=== PATIENT | female | born 1970 | race Caucasian/White ===

== ENCOUNTER → 2016-12-08 | Outpatient (CLI) | payer BC ==
[2016-12-08 17:11] LABS: Basophils % (A) 0 %; CH 32.5; CHCM 34.4; Eosinophils # (A) 0.1 k/uL (0-0.7); Eosinophils % (A) 2 %; HCT 41.6 % (34.0-46.0); HDW 2.39; HGB 14.2 gm/dL (11.4-16.0); Luc # (Auto) 0.18; Luc % (Auto) 2; Lymphocytes # (A) 2.9 k/uL (1.0-4.8); Lymphocytes % (A) 37 %; MCH 32.4 pg (25.0-35.0); MCHC 34.1 g/dL (31.0-37.0); MCV 94.8 fL (80.0-100.0); Mean Platelet Volume 7.8; Monocytes # (A) 0.5 k/uL (0-1.0); Monocytes % (A) 6 %; Neutrophils # (A) 4.1 k/uL (1.3-7.7); Neutrophils % (A) 52 %; RBC 4.39 m/uL (3.80-5.40); RDW 12.2 % (11.5-15.5); WBC 7.9 k/uL (3.8-10.6); WBC (Perox) 8.27
[2016-12-08 17:15] LABS: Appearance,Urine Clear (Clear); Bilirubin,Urine Negative (Negative); Glucose,Urine (UA) Negative (Negative); Ketones,Urine Negative (Negative); Leukocyte Esterase,Urine Negative (Negative); Nitrite,Urine Negative (Negative); PH, Urine 6.5 (5.0-8.0); Protein,Urine Negative (Negative); Specific Gravity,Urine 1.005 (1.001-1.035); UA Billing (MACRO vs. MICRO) CHEM; Urobilinogen,Urine <2.0 mg/dL (<2.0)
--- NOTE | 2016-12-08 17:19 | XR ---
EXAMINATION TYPE: XR chest 2V DATE OF EXAM: 12/08/2016 5:02 PM COMPARISON: NONE HISTORY: Smoker. Chest pain. TECHNIQUE: Frontal and lateral views of the chest are obtained. FINDINGS: Heart and mediastinum are normal. Lungs are clear. Diaphragm is normal. There are no hilar masses. Bony thorax appears normal. IMPRESSION: Normal chest
[2016-12-08 17:21] LABS: ALT 31 U/L (9-52); AST 19 U/L (14-36); Alkaline Phosphatase 62 U/L (38-126); Anion Gap 12 mmol/L; Blood Urea Nitrogen 11 mg/dL (7-17); C Reactive Protein <5.0 mg/L (<10.0); Calcium 9.7 mg/dL (8.4-10.2); Carbon Dioxide 21 mmol/L (22-30); Chloride 107 mmol/L (98-107); Glucose 77 mg/dL (74-99); Magnesium 2.1 mg/dL (1.6-2.3); Non-African American GFR(MDRD) >60 (>60 ml/min/1.73 sqM); Potassium 3.8 mmol/L (3.5-5.1); Sodium 140 mmol/L (137-145); Total Bilirubin 0.5 mg/dL (0.2-1.3); Total Protein 7.7 g/dL (6.3-8.2); Uric Acid 4.1 mg/dL (3.7-7.4)
[2016-12-08 17:22] LABS: Rheumatoid Factor, Qnt <9 IU/mL (<12)
[2016-12-08 18:08] LABS: Vitamin B12 798 pg/mL (239-931)
[2016-12-08 19:31] LABS: Erythrocyte Sedimentation Rate 4 mm/hr (0-20)
--- NOTE | 2016-12-09 13:04 | MM ---
Reason for exam: screening (asymptomatic). Last mammogram was performed 1 year and 7 months ago. History: Patient has history of endometrial cancer at age 24. Physical Findings: A clinical breast exam by your physician is recommended on an annual basis and results should be correlated with mammographic findings. MG Screening Mammo w CAD Bilateral CC and MLO view(s) were taken. Prior study comparison: May 23, 2015, bilateral foundation screening mammo. April 06, 2012, mammogram, performed at [facility]. The breast tissue is heterogeneously dense. This may lower the sensitivity of mammography. No significant changes when compared with prior studies. ASSESSMENT: Benign, BI-RAD 2 RECOMMENDATION: Routine screening mammogram of both breasts in 1 year.
== END | disposition home or self-care (01) ==
LOC: RADMAMWWP 16:31
PROVIDERS: ATTEND Internal Medicine
DX: Z12.31 Encounter for screening mammogram for malignant neoplasm of breast (principal); Z00.00 Encounter for general adult medical examination without abnormal findings; N39.0 Urinary tract infection, site not specified; I10 Essential (primary) hypertension; R35.0 Frequency of micturition; M06.4 Inflammatory polyarthropathy; Z72.0 Tobacco use
CPT/HCPCS: 80053; 85652; 82607; 83735; 84550; 85025; 86140; 86431; 81003; 82306; 87086; 71020; 36415; G0202

== ENCOUNTER → 2017-04-21 | Outpatient (CLI) | payer BC ==
--- NOTE | 2017-04-21 19:13 | CT ---
EXAMINATION TYPE: CT abdomen pelvis w con DATE OF EXAM: 04/21/2017 COMPARISON: NONE HISTORY: RIGHT SIDE FLANK PAIN AND DIFFICULTY URINATING. CT DLP: 534.5 mGycm Automated exposure control for dose reduction was used. TECHNIQUE: Helical acquisition of images was performed from the lung bases through the pelvis. CONTRAST: Performed with Oral Contrast and with IV Contrast, patient injected with 100 mL of Omnipaque 300. FINDINGS: Lung bases are clear. There is no pleural effusion. Heart size is normal. Liver spleen pancreas gallbladder appear normal. Bile ducts are not dilated. There is no adrenal mass. Kidneys show satisfactory contrast opacification. There is no hydronephrosi s. There is probably a 1 cm cortical cyst on the anterior left kidney. There is no retroperitoneal ad enopathy. There is no ascites. Appendix appears normal. I see no intestinal wall thickening. There ar e no dilated loops. Uterus is tilted slightly to the right side. Bladder distends smoothly. Lumbar sp ine is intact. IMPRESSION: NEGATIVE CT SCAN OF THE ABDOMEN AND PELVIS. THERE IS A SMALL LEFT RENAL CORTICAL CYST.
== END | disposition home or self-care (01) ==
LOC: RADCTMAIN 17:01
PROVIDERS: ATTEND Internal Medicine
DX: N28.1 Cyst of kidney, acquired (principal); R10.9 Unspecified abdominal pain
CPT/HCPCS: 74177; Q9967

== ENCOUNTER → 2018-09-20 | Outpatient (CLI) | payer BC ==
[2018-09-20 08:31] VITALS: BP 121/82; PULSE 94; RESP 18; TEMP 97.4; BMI 29.4
--- NOTE | 2018-09-20 10:08 | P.HPOB ---
History of Present Illness H&P Date: 09/20/18 Chief Complaint: The patient is here for her routine gynecologic exam and mammogram. This is a 48-year-old with an LMP of 08/11/2018. Patient states are menstrual periods were regular every 25 days up until about 2017. She had a stretch of 3 months in 2017 when she did not have a menstrual period. Since then her menstrual periods have been more unpredictable about every 3 to 6 weeks. She has had bleeding every day since her LMP except for a 48 hour stretch when she did not bleed. The bleeding became fairly heavy from 08/31/2018 -09/08/18. Since then the bleeding has been light and is now spotting. She did have hot flashes last year, but now she denies hot flashes. She is status post tubal sterilization. She has also been dealing with left flank pain and a kidney stone this month. She denies taking any pain medication other than regular Tylenol. She was given a prescription for tramadol for the kidney stone pain. She states she did not take any of the medication prescribed. Review of Systems She is getting about 18 pounds over the last 3 years. She denies respiratory cardiac problems. G.I.: she has had a long history of chronic constipation. : she has had issues with left flank pain and was recently diagnosed with a kidney stone. Past Medical History Past Medical History: No Reported History Additional Past Medical History / Comment(s): kidney stones. PAST HEAD OF MOBILE HISTORY : She has no history of STDs. She had a LEEP procedure of the cervix in her 20s for cervical dysplasia. History of Any Multi-Drug Resistant Organisms: None Reported Past Surgical History: Adenoidectomy, Breast Surgery (Augmentation with saline implants 2017), Tonsillectomy, Tubal Ligation Additional Past Surgical History / Comment(s): D&C, VTP, breast augmentation. LEEP of cervix. Upper endoscopy and colonoscopy 2010. Past Psychological History: Anxiety Smoking Status: Current every day smoker (Half pack per day) Past Alcohol Use History: Occasional (0-2 glasses of wine per day) Past Drug Use History: Marijuana Additional History: She is and has been with her partner since 2015 they lived together. 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 - Past Family History Mother Additional Family Medical History / Comment(s): Diverticulosis. Father Family Medical History: Coronary Artery Disease (CAD), Diabetes Mellitus Additional Family Medical History / Comment(s): Paternal grandfather had diabetes. Medications and Allergies Home Medications Medication Instructions Recorded Confirmed Type No Known Home Medications 09/20/18 09/20/18 History Allergies Allergy/AdvReac Type Severity Reaction Status Date / Time codeine AdvReac Severe throat Unverified 09/20/18 08:23 closure Sulfa (Sulfonamide AdvReac Severe Rash/Hives Unverified 09/20/18 08:23 Antibiotics) Exam Vital Signs Temp Pulse Resp BP Pulse Ox 09/20/18 08:26 97.4 F L 94 18 121/82 99 Intake and Output 09/19/18 09/20/18 09/20/18 22:59 06:59 14:59 Other: Weight 75.296 kg Height 5'3", weight 166 pounds, BMI 29.4. This is a well-developed well-nourished white female who is alert and oriented times 3 in no acute distress. HEENT: Within normal limits. NECK: Supple without mass or thyromegaly. CHEST AND LUNGS: Clear to auscultation. HEART: Regular rate and rhythm. BREASTS: Are without mass or discharge. Breasts are consistent with bilateral saline implants. AXILLARY EXAM: Negative for adenopathy. BACK: Negative for CVA tenderness. ABDOMEN: Soft, nontender, without palpable masses. PELVIC EXAM: Normal external genitalia. Cervix and vagina appear normal. There is no unusual discharge. There was no blood in the vagina upon inspection. There is no evidence of prolapse. The uterus is midposition, nongravid size and nontender. There are no palpable adnexal masses or tenderness. RECTAL EXAM: negative for mass or tenderness and is negative for occult blood. EXTREMITIES: Nontender. We discussed the endometrial biopsy procedure which I have recommended because of her dysfunctional uterine bleeding. We discussed possible risks and complications. All questions were answered. The patient has requested to have the procedure done today. Endometrial biopsy was performed without complications. Please see the procedure note for additional details. IMPRESSION: 1. 48 year old female with one to 2 years of menstrual irregularity every 3 to 6 weeks. 2. Dysfunctional uterine bleeding which started on 08/11/2018. 3. Previous tubal sterilization. 4. Normal gynecologic exam. PLAN: 1. Pap smear was performed. 2. Self breast awareness was discussed with the patient. 3. Mammogram will be done today. 4. The patient will keep a menstrual calendar. 5. Await endometrial biopsy pathology results (see procedure note). If benign , consider cyclic progestin therapy. Since the bleeding is minimal today, we can also consider conservative management and see what kind of bleeding occurs in the next few months. 6. The patient will also return in one year and PRN.
--- NOTE | 2018-09-20 10:16 | P.PCN ---
Date of Procedure: 09/20/18 Preoperative Diagnosis: Dysfunctional uterine bleeding Postoperative Diagnosis: Dysfunctional uterine bleeding Procedure(s) Performed: Endometrial biopsy Anesthesia: none Surgeon: Eleuterio Pineda Estimated Blood Loss (ml): 1 Pathology: other (Endometrial tissue) Condition: stable Disposition: same day Indications for Procedure: This was a 48-year-old with an LMP of 08/11/2018. The patient has had variable vaginal bleeding most days since her LMP for approximately 5 weeks. See the H&P for additional details. Operative Findings: The uteruses gravid size. The uterus sounded to 9 cm. Moderate amount of tissue was obtained. Description of Procedure: The endometrial biopsy procedure was described to the patient. All of her questions were answered. The patient was placed in the lithotomy position. Bimanual examination was performed. The uterus is mid-positioned and is nongravid size. The speculum was inserted and the cervix and vagina were prepped with betadine solution. In Allys Clamp is used to grasp the anterior lip of the cervix. The 3mm endometrial biopsy curette was placed to the fundus without difficulty. The uterus sounded to 9 cm. A [id number] rotating motion was used and a moderate amount of tissue was obtained and sent for pathological examination. The patient tolerated the procedure well. There were no complications. Post procedure instructions were given to the patient.
--- NOTE | 2018-09-22 09:14 | MM ---
Reason for exam: screening (asymptomatic). Last mammogram was performed 1 year and 9 months ago. History: Patient has history of endometrial cancer at age 24. Implants in both breasts, 2018. Physical Findings: A clinical breast exam by your physician is recommended on an annual basis and results should be correlated with mammographic findings. MG 3D Screen Mammo Imp/Cad Bilateral CC, MLO, and ID view(s) were taken. Prior study comparison: December 08, 2016, bilateral MG screening mammo w CAD. May 23, 2015, bilateral MG foundation screening mammo. The breast tissue is heterogeneously dense. This may lower the sensitivity of mammography. Bilateral retropectoral silicone implants are new. No significant changes when compared with prior studies. ASSESSMENT: Negative, BI-RAD 1 RECOMMENDATION: Routine screening mammogram of both breasts in 1 year.
== END | disposition home or self-care (01) ==
LOC: WWCWWP 08:10
PROVIDERS: ATTEND Obstetrics & Gynecology
DX: Z12.31 Encounter for screening mammogram for malignant neoplasm of breast (principal); N85.01 Benign endometrial hyperplasia
CPT/HCPCS: 77063; 77067; 88305

== ENCOUNTER → 2018-09-27 | Outpatient (CLI) | payer BC ==
--- NOTE | 2018-09-27 11:13 | XR ---
EXAMINATION TYPE: XR abdomen 1V DATE OF EXAM: 09/27/2018 COMPARISON: NONE HISTORY: Pain TECHNIQUE: Single supine KUB image of the abdomen is obtained FINDINGS: Small bowel demonstrates no evidence for dilatation or air fluid levels. Gas and fecal material is seen in non-distended colon. No convincing evidence for pneumoperitoneum. No unusual calcifications. The lung bases are clear. The osseous structures are intact. IMPRESSION: 1. Overall nonobstructive bowel gas pattern.
== END | disposition home or self-care (01) ==
LOC: RADXRMAIN 10:12
PROVIDERS: ATTEND Urology
DX: N20.0 Calculus of kidney (principal)
CPT/HCPCS: 74018

== ENCOUNTER 2019-01-27 00:40 | Emergency (ER) | payer BC, OTHER ==
--- NOTE | 2019-01-27 01:22 | XR ---
EXAM: XR Left Foot Complete, 3 or More Views XR Right Foot Complete, 3 or More Views CLINICAL HISTORY: ITS.REASON XR Reason: Pain TECHNIQUE: Frontal, lateral and oblique views of the bilateral feet. COMPARISON: None. FINDINGS: Bones/joints: Unremarkable. No acute fracture. No dislocation. Soft tissues: Unremarkable. No radiopaque foreign body. IMPRESSION: No acute osseous abnormality.
--- NOTE | 2019-01-27 01:25 | XR ---
EXAM: XR Left Tibia and Fibula, 2 Views XR Right Tibia and Fibula, 2 Views CLINICAL HISTORY: ITS.REASON XR Reason: Pain TECHNIQUE: Frontal and lateral views of the bilateral tibia and fibulas. COMPARISON: None. FINDINGS: Bones/joints: Unremarkable. No acute fracture. No dislocation. Soft tissues: Unremarkable. No radiopaque foreign body. IMPRESSION: No acute osseous abnormality.
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
[2019-01-27] MEDS ORDERED: DIAZEPAM 5 MG TAB PO STA (02:42)
[2019-01-27 03:48] VITALS: BP 128/93; PULSE 80; RESP 17; TEMP 98
== END 2019-01-27 02:55 | disposition home or self-care (01) ==
LOC: EC 00:40
DX: M79.661 Pain in right lower leg (principal); M79.662 Pain in left lower leg; F17.200 Nicotine dependence, unspecified, uncomplicated; Z88.5 Allergy status to narcotic agent; Z88.2 Allergy status to sulfonamides; V89.2XXA Person injured in unspecified motor-vehicle accident, traffic, initial encounter; Y92.89 Other specified places as the place of occurrence of the external cause
CPT/HCPCS: 99284

== ENCOUNTER → 2019-02-06 | Outpatient (CLI) | payer BC, OTHER ==
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
== END | disposition home or self-care (01) ==
LOC: RADXRMAIN 09:15
PROVIDERS: ATTEND Internal Medicine
DX: R07.9 Chest pain, unspecified (principal); M25.552 Pain in left hip; M25.551 Pain in right hip; M54.2 Cervicalgia; M54.5 Low back pain; R10.2 Pelvic and perineal pain
CPT/HCPCS: 71046; 72050; 72110; 73521

== ENCOUNTER → 2019-05-22 | Outpatient (CLI) | payer BC ==
--- NOTE | 2019-05-23 07:49 | XR ---
EXAMINATION TYPE: XR KUB DATE OF EXAM: 05/22/2019 COMPARISON: NONE HISTORY: Pain TECHNIQUE: Single supine KUB image of the abdomen is obtained FINDINGS: Small bowel demonstrates no evidence for dilatation or air fluid levels. Gas and fecal material is seen in non-distended colon. No convincing evidence for pneumoperitoneum. No unusual calcifications. The lung bases are clear. The osseous structures are intact. IMPRESSION: 1. Overall nonobstructive bowel gas pattern.
== END | disposition home or self-care (01) ==
LOC: RADXRMAIN 16:51
PROVIDERS: ATTEND Urology
DX: N20.0 Calculus of kidney (principal)
CPT/HCPCS: 74018

== ENCOUNTER → 2019-10-17 | Outpatient (CLI) | payer BC ==
[2019-10-17 08:05] VITALS: BP 131/89; PULSE 80; RESP 18; TEMP 98.3
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
--- NOTE | 2019-10-18 11:50 | MM ---
Reason for exam: screening (asymptomatic). Last mammogram was performed 1 year and 1 month ago. History: Patient has history of endometrial cancer at age 24. Implants in both breasts, 2018. Taking progesterone beginning at age 48. Physical Findings: A clinical breast exam by your physician is recommended on an annual basis and results should be correlated with mammographic findings. MG 3D Screen Mammo Imp/Cad Bilateral CC, MLO, and ID view(s) were taken. Prior study comparison: September 20, 2018, bilateral MG 3d screen mammo imp/cad. December 08, 2016, bilateral MG screening mammo w CAD. The breast tissue is heterogeneously dense. This may lower the sensitivity of mammography. There is no discrete abnormality. Bilateral subpectoral implants redemonstrated. ASSESSMENT: Benign, BI-RAD 2 RECOMMENDATION: Routine screening mammogram of both breasts in 1 year.
== END | disposition home or self-care (01) ==
LOC: WWCWWP 07:50
PROVIDERS: ATTEND Obstetrics & Gynecology
DX: Z12.31 Encounter for screening mammogram for malignant neoplasm of breast (principal)
CPT/HCPCS: 77063; 77067

== ENCOUNTER → 2021-06-16 | Outpatient (CLI) | payer BC ==
[2021-06-16 12:52] VITALS: BP 129/88; PULSE 74; RESP 18; TEMP 98
--- NOTE | 2021-06-16 13:35 | P.HPOB ---
History of Present Illness H&P Date: 06/16/21 Chief Complaint: The patient is here for her routine gynecologic exam and ma mmogram. This is a 50-year-old 011 with an LMP of 06/01/2021. The patient has a history of dysfunctional uterine bleeding and this has been controlled with cyclic Provera. She states she has been doing well with cyclic Provera and menstrual appears have been very light and sometimes just spotting. She has had some months with no bleeding. Her light periods tend to be very predictable af ter the course of cyclic Provera. She denies any significant hot flashes. She wants to continue on with cyclic Provera at this time. Review of Systems The patient has gained 4 pounds over the last year. She denies respiratory, cardiac, or G.I. problems. Past Medical History Past Medical History: No Reported History Additional Past Medical History / Comment(s): kidney stones. 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 She had a LEEP procedure of the cervix in her 20s for cervical dysplasia. History of Any Multi-Drug Resistant Organisms: None Reported Past Surgical History: Adenoidectomy, Breast Surgery, Tonsillectomy, Tubal Ligation Additional Past Surgical History / Comment(s): D&C, VTP, breast augmentation. LEEP of cervix 1995. Upper endoscopy and colonoscopy 2010. Past Psychological History: Anxiety Smoking Status: Current every day smoker (One quarter of a pack per day) Past Alcohol Use History: Daily (2 per day) Past Drug Use History: Marijuana Additional Drug Use History / Comment(s): Marijuana use in the past, but she states it has been several years since she has used marijuana. Additional History: She is and has been with her partner since 2014. They live together. 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 - Past Family History Mother Additional Family Medical History / Comment(s): Diverticulosis. Father Family Medical History: Coronary Artery Disease (CAD), Diabetes Mellitus Additional Family Medical History / Comment(s): Paternal grandfather had diabetes. Medications and Allergies Home Medications Medication Instructions Recorded Confirmed Type Ibuprofen [Motrin] 600 mg PO Q6HR PRN #30 tab 01/27/19 06/16/21 Rx Medroxyprogesterone Acetate 10 mg PO DAILY #36 tablet 10/17/19 06/16/21 Rx Loratadine [Claritin] 10 mg PO DAILY 06/16/21 06/16/21 History Omeprazole 40 mg PO DAILY 06/16/21 06/16/21 History Allergies Allergy/AdvReac Type Severity Reaction Status Date / Time codeine AdvReac Severe throat Verified 06/16/21 12:43 closure Sulfa (Sulfonamide AdvReac Severe Rash/Hives Verified 06/16/21 12:43 Antibiotics) Exam Vital Signs Temp Pulse Resp BP Pulse Ox 06/16/21 12:45 98.0 F 74 18 129/88 99 Intake and Output 06/15/21 06/16/21 06/16/21 22:59 06:59 14:59 Other: Weight 82.1 kg Height 5 feet 4 inches, weight 181 pounds, BMI 31.1. This is a well-developed well-nourished white female who is alert and oriented times 3 in no acute distress. HEENT: Within normal limits. NECK: Supple without mass or thyromegaly. CHEST AND LUNGS: Clear to auscultation. HEART: Regular rate and rhythm. BREASTS: Are without mass or discharge. Breasts are consistent with bilateral implants. AXILLARY EXAM: Negative for adenopathy. BACK: Negative for CVA tenderness. ABDOMEN: Soft, nontender, without palpable masses. PELVIC EXAM: Normal external genitalia. Cervix and vagina appear normal. There is no unusual discharge. There is no evidence of prolapse. The uterus is midposition, multiparous, nongravid size and nontender. There are no palpable adnexal masses or tenderness. RECTAL EXAM: Rectovaginal exam is negative for mass or tenderness and is negative for occult blood. EXTREMITIES: Nontender. IMPRESSION: 1. 50-year-old perimenopausal female with history of dysfunctional uterine bleeding controlled with cyclic Provera. PLAN: 1. Pap smear cotest was performed. 2. Self breast awareness was discussed with the patient. We have also discussed symptoms associated with inflammatory breast cancer. 3. Screening mammogram will be done today. 4. Osteoporosis prevention was discussed. I have stressed the importance of adequate calcium, vitamin D and regular exercise. Recommended amounts of calcium and vitamin D were also discussed. 5. We will continue using cyclic Provera since her dysfunctional uterine bleeding has been well controlled. She will keep a menstrual calendar. If she is amenorrheic for 6 months with cyclic Provera, we will have a trial off of cyclic Provera. The electronic prescription will be sent to [facility] pharmacy in [place]. 6. She was advised to return in one year for her annual well woman exam and as needed.
--- NOTE | 2021-06-18 10:26 | MM ---
Reason for exam: screening (asymptomatic). Last mammogram was performed 1 year and 8 months ago. History: Patient has history of endometrial cancer at age 24. Implants in both breasts, 2018. Taking progesterone beginning at age 48. Physical Findings: A clinical breast exam by your physician is recommended on an annual basis and results should be correlated with mammographic findings. MG 3D Screen Mammo Imp/Cad Bilateral CC, MLO, and ID view(s) were taken. Prior study comparison: October 17, 2019, bilateral MG 3d screen mammo imp/cad. September 20, 2018, bilateral MG 3d screen mammo imp/cad. The breast tissue is heterogeneously dense. This may lower the sensitivity of mammography. Bilateral breast prothesis. No significant changes when compared with prior studies. ASSESSMENT: Benign, BI-RAD 2 RECOMMENDATION: Routine screening mammogram of both breasts in 1 year.
== END ==
LOC: WWCWWP 12:15
PROVIDERS: ATTEND Obstetrics & Gynecology
DX: Z01.419 Encounter for gynecological examination (general) (routine) without abnormal findings (principal); Z12.31 Encounter for screening mammogram for malignant neoplasm of breast; F41.9 Anxiety disorder, unspecified; F17.210 Nicotine dependence, cigarettes, uncomplicated; Z87.42 Personal history of other diseases of the female genital tract; Z88.2 Allergy status to sulfonamides; Z88.5 Allergy status to narcotic agent
CPT/HCPCS: 77063; 77067

== ENCOUNTER → 2022-11-09 | Outpatient (CLI) | payer BC ==
[2022-11-09 08:26] VITALS: BP 118/75; PULSE 80; RESP 17; TEMP 98.5
--- NOTE | 2022-11-09 09:01 | P.HPOB ---
History of Present Illness H&P Date: 11/09/22 Chief Complaint: The patient is here for her routine gynecologic exam and ma mmogram. This is a 52-year-old 011 with an LMP of April 2022. The patient has a history of dysfunctional uterine bleeding which was controlled with cyclic Provera. She has done well with the cyclic Provera. Her menstrual periods have been getting less frequent. She states last year she almost made it one full year without menstrual periods, but had a menstrual period in April 2022. We discussed the option of discontinuing the cyclic Provera, but she is requesting to stay on that until she has reached her full menopause because she does not want to have dysfunctional bleeding again. She does have occasional mild hot flashes. Review of Systems The patient has gained 3 pounds over the last year. She denies respiratory, cardiac, or G.I. problems. Past Medical History Past Medical History: No Reported History Additional Past Medical History / Comment(s): kidney stones. 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 She had a LEEP procedure of the cervix in her 20s for cervical dysplasia. History of Any Multi-Drug Resistant Organisms: None Reported Past Surgical History: Adenoidectomy, Breast Surgery, Tonsillectomy, Tubal Ligation Additional Past Surgical History / Comment(s): D&C, VTP, breast augmentation. LEEP of cervix 1995. Upper endoscopy. COLONOSCOPY NOVEMBER 2021(for +Cologuard) Past Psychological History: Anxiety Smoking Status: Current every day smoker (One third of a pack of cigarettes per day.) Past Alcohol Use History: Occasional (1 bottle of wine per week.) Past Drug Use History: Marijuana Additional Drug Use History / Comment(s): Marijuana use in the past, but she states it has been several years since she has used marijuana. She does use marijuana Gummi's. - Past Family History Mother Additional Family Medical History / Comment(s): Diverticulosis. Father Family Medical History: Coronary Artery Disease (CAD), Diabetes Mellitus Additional Family Medical History / Comment(s): Paternal grandfather had diabetes. Medications and Allergies Home Medications Medication Instructions Recorded Confirmed Type Ibuprofen [Motrin] 600 mg PO Q6HR PRN #30 tab 01/27/19 11/09/22 Rx Medroxyprogesterone Acetate 10 mg PO DAILY #36 tablet 06/16/21 11/09/22 Rx Omeprazole 40 mg PO DAILY 06/16/21 11/09/22 History Fexofenadine/Pseudoephedrine 1 tab PO DAILY PRN 11/09/22 11/09/22 History [Theodora-D 24 Hour Tablet] Fluticasone Nasal [place] [Flonase 1 spray NASAL DAILY PRN 11/09/22 11/09/22 History Nasal [place]] Multivitamin [Multivitamins Adult 1 tab PO DAILY 11/09/22 11/09/22 History Gummies] Elbert 3,6/Dha/Sanjuana/Schizo/Mort 1 drop PO DAILY 11/09/22 11/09/22 History [Enfamil Dha-Sanjuana 110 mg/ml Drop] Allergies Allergy/AdvReac Type Severity Reaction Status Date / Time codeine AdvReac Severe throat Verified 11/09/22 08:20 closure Sulfa (Sulfonamide AdvReac Severe Rash/Hives Verified 11/09/22 08:20 Antibiotics) Exam Vital Signs Temp Pulse Resp BP Pulse Ox 11/09/22 08:23 98.5 F 80 17 118/75 97 Intake and Output 11/08/22 11/09/22 11/09/22 22:59 06:59 14:59 Other: Weight 83.461 kg Height 5 feet 4 inches, weight 184 pounds, BMI 31.6. This is a well-developed well-nourished white female who is alert and oriented times 3 in no acute distress. HEENT: Within normal limits. NECK: Supple without mass or thyromegaly. CHEST AND LUNGS: Clear to auscultation. HEART: Regular rate and rhythm. BREASTS: Are without mass or discharge. Breasts are consistent with bilateral implants. AXILLARY EXAM: Negative for adenopathy. BACK: Negative for CVA tenderness. ABDOMEN: Soft, nontender, without palpable masses. PELVIC EXAM: Normal external genitalia. Cervix and vagina appear normal. There is no unusual discharge. There is no evidence of prolapse. The uterus is midposition, nongravid size and nontender. There are no palpable adnexal masses or tenderness. RECTAL EXAM: Rectovaginal exam is negative for mass or tenderness and is negative for occult blood. EXTREMITIES: Nontender. IMPRESSION: 1. 52-year-old perimenopausal female doing well with cyclic Provera for her history of dysfunctional uterine bleeding and endometrial hyperplasia without atypia in the past. 2. Oligomenorrhea consistent with the perimenopause. 3. Mild vasomotor symptoms. 4. Normal gynecologic exam. PLAN: 1. Pap smear was deferred since she had a negative Pap smear cotest on 06/16/2021. 2. Self breast awareness was discussed with the patient. We have also discussed symptoms associated with inflammatory breast cancer. 3. Screening mammogram will be done today. 4. Patient would like to continue cyclic Provera at this time and we will discontinue this medication when she has gone for 12 months with no vaginal bleeding. The electronic prescription will be sent to [facility] pharmacy in [place]. 5. She was advised to try to quit smoking altogether. 6. She was advised to return in one year for her annual well woman exam and as needed.
--- NOTE | 2022-11-10 07:57 | MM ---
Reason for Exam: Screening (asymptomatic). Last mammogram was performed 1 year(s) and 5 month(s) ago. Patient History: Menarche at age 16. First Full-Term at age 18. Patient has history of breast feeding. Currently using Progesterone, starting at age 48. 2018, Bilateral Implants. Last menstrual period: 05/06/2022 Risk Values: Jennifer 5 year model risk: 0.7%. NCI Lifetime model risk: 5.9%. Prior Study Comparison: 09/20/2018 Bilateral Screening Mammogram, [facility]. 10/17/2019 Bilateral Screening Mammogram, [facility]. 06/16/2021 Bilateral Screening Mammogram, [facility]. Tissue Density: There are scattered fibroglandular densities. Findings: Analyzed By CAD. There is no suspicious group of microcalcifications or new suspicious mass in either breast. Bilateral implants are intact. Overall Assessment: Benign, BI-RAD 2 Management: Screening Mammogram of both breasts in 1 year. A clinical breast exam by your physician is recommended on an annual basis and results should be correlated with mammographic findings. Electronically signed and approved by: Thong Wells M.D. Radiologis
== END ==
LOC: WWCWWP 08:15
PROVIDERS: ATTEND Obstetrics & Gynecology
DX: Z12.31 Encounter for screening mammogram for malignant neoplasm of breast (principal); Z01.419 Encounter for gynecological examination (general) (routine) without abnormal findings; N95.9 Unspecified menopausal and perimenopausal disorder; N91.5 Oligomenorrhea, unspecified; J30.0 Vasomotor rhinitis; N85.00 Endometrial hyperplasia, unspecified; Z88.5 Allergy status to narcotic agent; Z88.2 Allergy status to sulfonamides; F17.210 Nicotine dependence, cigarettes, uncomplicated
CPT/HCPCS: 77063; 77067

== ENCOUNTER → 2023-12-27 | Outpatient (CLI) | payer BC ==
[2023-12-27 12:10] VITALS: BP 126/85; PULSE 85; RESP 17; TEMP 98.1
--- NOTE | 2023-12-27 12:13 | P.HPOB ---
History of Present Illness H&P Date: 12/27/23 Chief Complaint: The patient is here for her routine gynecologic exam and ma mmogram. This is a 53-year-old -0-1-1 with an LMP of 12/10/2023. She has been taking cyclic Provera on days 5 through 16 of the month because of her history of dysfunctional uterine bleeding in the past. Prior to her LMP, which was light, she had 10 months without a withdrawal bleed. She has had mild hot flashes. She is otherwise without complaints. Review of Systems The patient has lost 8 pounds over the last year. She has been trying to lose weight. She denies respiratory, cardiac, or G.I. problems. Past Medical History Past Medical History: No Reported History Additional Past Medical History / Comment(s): kidney stones. 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 She had a LEEP procedure of the cervix in her 20s for cervical dysplasia. History of Any Multi-Drug Resistant Organisms: None Reported Past Surgical History: Adenoidectomy, Breast Surgery, Tonsillectomy, Tubal Ligation Additional Past Surgical History / Comment(s): D&C, VTP, breast augmentation. LEEP of cervix 1995. Upper endoscopy. COLONOSCOPY NOVEMBER 2021(for +Cologuard) Past Psychological History: Anxiety Smoking Status: Current every day smoker (About 3 packs of cigarettes per week.) Past Alcohol Use History: Occasional (About 5 drinks per week.) Past Drug Use History: Marijuana (Denies smoking marijuana currently. Gummies only to help sleeping.) Additional Drug Use History / Comment(s): Marijuana use in the past, but she states it has been several years since she has used marijuana. She does use mar ijuana Gummi's. Additional History: She has been since March 2022 and this is her second marriage. 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 - Past Family History Mother Additional Family Medical History / Comment(s): Diverticulosis. Father Family Medical History: Coronary Artery Disease (CAD), Diabetes Mellitus Additional Family Medical History / Comment(s): Paternal grandfather had diabetes. Medications and Allergies Home Medications Medication Instructions Recorded Confirmed Type Ibuprofen [Motrin] 600 mg PO Q6HR PRN #30 tab 01/27/19 12/27/23 Rx Fexofenadine/Pseudoephedrine 1 tab PO DAILY PRN 11/09/22 12/27/23 History [Theodora-D 24 Hour Tablet] Fluticasone Nasal [place] [Flonase 1 spray NASAL DAILY PRN 11/09/22 12/27/23 History Nasal [place]] Medroxyprogesterone Acetate 10 mg PO DIRECTED #36 tablet 11/09/22 12/27/23 Rx Multivitamin [Multivitamins Adult 1 tab PO DAILY 11/09/22 12/27/23 History Gummies] Allergies Allergy/AdvReac Type Severity Reaction Status Date / Time codeine AdvReac Severe throat Verified 12/27/23 11:16 closure Sulfa (Sulfonamide AdvReac Severe Rash/Hives Verified 12/27/23 11:16 Antibiotics) Exam Vital Signs Temp Pulse Resp BP Pulse Ox 12/27/23 11:25 98.1 F 85 17 126/85 99 Intake and Output 12/26/23 12/27/23 12/27/23 22:59 06:59 14:59 Other: Weight 79.832 kg Height 5 feet 3 inches, weight 176 pounds, BMI 31.2. This is a well-developed well-nourished white female who is alert and oriented times 3 in no acute distress. HEENT: Within normal limits. NECK: Supple without mass or thyromegaly. CHEST AND LUNGS: Clear to auscultation. HEART: Regular rate and rhythm. BREASTS: Are without mass or discharge. AXILLARY EXAM: Negative for adenopathy. BACK: Negative for CVA tenderness. ABDOMEN: Soft, nontender, without palpable masses. PELVIC EXAM: Normal external genitalia with mild atrophy. Cervix and vagina a ppear normal with mild atrophy. There is no unusual discharge. There is no evidence of prolapse. The uterus is midposition, nongravid size and nontender. There are no palpable adnexal masses or tenderness. RECTAL EXAM: Rectovaginal exam is negative for mass or tenderness and is negative for occult blood. EXTREMITIES: Nontender. IMPRESSION: 1. 53-year-old perimenopausal female with long episodes of amenorrhea on cyclic Provera, with normal gynecologic exam. 2. Mild vasomotor symptoms. 3. History of dysfunctional uterine bleeding improved with cyclic Provera. PLAN: 1. Pap smear was deferred since she had a negative Pap smear cotest on 06/12/2021. 2. Self breast awareness was discussed with the patient. We have also discussed symptoms associated with inflammatory breast cancer. 3. Screening mammogram was done today. 4. She will continue cyclic Provera for the upcoming 3 months. If she does not have a withdrawal bleed during those 3 months, we will have a trial off of the Provera. She states she has enough refills for this 3-month trial. She will call if she does continue to have withdrawal bleeds in which case we will continue cyclic Provera longer. 5. Osteoporosis prevention was discussed. I have stressed the importance of adequate calcium, vitamin D and regular exercise. Recommended amounts of calcium and vitamin D were also discussed. 6. She was advised to return in one year for her annual well woman exam and as needed.
--- NOTE | 2023-12-29 08:50 | MM ---
Reason for Exam: Screening (asymptomatic). Last mammogram was performed 1 year(s) and 2 month(s) ago. Patient History: Menarche at age 16. First Full-Term at age 18. Patient has history of breast feeding. Currently using Progesterone, starting at age 48. 2018, Bilateral Implants. Mother had breast cancer. Risk Values: Jennifer 5 year model risk: 1.8%. NCI Lifetime model risk: 14.3%. Prior Study Comparison: 10/17/2019 Bilateral Screening Mammogram, [facility]. 06/16/2021 Bilateral Screening Mammogram, [facility]. 11/09/2022 Bilateral MG 3D screen mammo imp/cad., [facility]. Tissue Density: The breasts are heterogeneously dense, which may obscure small masses. Findings: Analyzed By CAD. There is no suspicious group of microcalcifications or new suspicious mass in either breast. Stable chronic nodularity likely representing benign lymph node left outer breast. Overall Assessment: Benign, BI-RAD 2 Management: Screening Mammogram of both breasts in 1 year. . Patient should continue monthly self-breast exams. A clinical breast exam by your physician is recommended on an annual basis. This exam should not preclude additional follow-up of suspicious palpable abnormalities. Note on Jennifer scores and lifetime risk: 1. A Jennifer score greater than 3% is considered moderate risk. If this is the case, consider specialist referral to assess eligibility for a risk reducing agent. 2. If overall lifetime risk for the development of breast cancer is 20% or higher, the patient may qualify for future screening with alternating mammogram and breast MRI. Electronically signed and approved by: Seb Henley M.D. Radiologis
== END ==
LOC: WWCWWP 10:42
PROVIDERS: ATTEND Obstetrics & Gynecology
DX: Z01.419 Encounter for gynecological examination (general) (routine) without abnormal findings (principal); Z12.31 Encounter for screening mammogram for malignant neoplasm of breast; N91.2 Amenorrhea, unspecified; F17.210 Nicotine dependence, cigarettes, uncomplicated; G90.8 Other disorders of autonomic nervous system; Z98.82 Breast implant status; Z87.42 Personal history of other diseases of the female genital tract; Z88.5 Allergy status to narcotic agent; Z88.2 Allergy status to sulfonamides
CPT/HCPCS: 77063; 77067

== ENCOUNTER → 2025-01-01 | Outpatient (CLI) | payer BC ==
[2025-01-01 09:54] VITALS: BP 135/83; PULSE 69; RESP 16; TEMP 98.1
--- NOTE | 2025-01-01 10:07 | P.HPOB ---
History of Present Illness H&P Date: 01/01/25 Chief Complaint: The patient is here for her routine gynecologic exam and ma mmogram. This is a 54-year-old -0-1-1 with an LMP of 12/10/2023. She previously used cyclic Provera because of dysfunctional uterine bleeding in the past. Menstrual periods were very infrequent and she discontinued the cyclic Provera 1 year ago. She has not had any vaginal bleeding for more than 1 year. She does have occasional hot flashes and night sweats. She knows that certain things can trigger this including wine. She is otherwise without gynecologic complaints. Review of Systems She has gained about 8 pounds over the past year. She denies cardiac or GI problems. Respiratory: Occasional environmental allergy symptoms. Past Medical History Additional Past Medical History / Comment(s): Environmental allergies. Kidney stones. 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 She had a LEEP procedure of the cervix in her 20s for cervical dysplasia. History of Any Multi-Drug Resistant Organisms: None Reported Past Surgical History: Adenoidectomy, Breast Surgery, Tonsillectomy, Tubal Ligation Additional Past Surgical History / Comment(s): D&C, VTP, breast augmentation. LEEP of cervix 1995. Upper endoscopy. COLONOSCOPY NOVEMBER 2021(for +Cologuard, next after 3yr)) Past Psychological History: Anxiety Smoking Status: Current every day smoker (One third to half pack per day.) Past Alcohol Use History: Daily (1-2 drinks per night.) Past Drug Use History: Marijuana (Does not smoke marijuana now, occasional Gummies for sleep.) Additional Drug Use History / Comment(s): Marijuana use in the past, but she states it has been several years since she has used marijuana. She does use marijuana Gummi's. Additional History: She has been since March 2022 and this is her seco nd marriage. 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 Life has been stressful after her grandson was diagnosed with Duchenne's muscular dystrophy. She and her enjoy motorcycle biking around the country and in [place]. - Past Family History Mother Family Medical History: Cancer Additional Family Medical History / Comment(s): Diverticulosis. Breast cancer. Father Family Medical History: Coronary Artery Disease (CAD), Diabetes Mellitus Additional Family Medical History / Comment(s): Paternal grandfather had diabetes. Grandson Additional Family Medical History / Comment(s): Duchenne's muscular dystrophy. Medications and Allergies Home Medications Medication Instructions Recorded Confirmed Type Ibuprofen [Motrin] 600 mg PO Q6HR PRN #30 tab 01/27/19 12/27/23 Rx Fluticasone Nasal [place] [Flonase 1 spray NASAL DAILY PRN 11/09/22 12/27/23 History Nasal [place]] Multivitamin [Multivitamins Adult 1 tab PO DAILY 11/09/22 12/27/23 History Gummies] Cetirizine HCl [Zyrtec] 10 mg PO DAILY 01/01/25 01/01/25 History Cholecalciferol [Vitamin D3 (25 25 mcg PO DAILY 01/01/25 01/01/25 History Mcg = 1000 Iu)] Magnesium Gluconate 12.5 mg PO TID 01/01/25 01/01/25 History Allergies Allergy/AdvReac Type Severity Reaction Status Date / Time codeine AdvReac Severe throat Verified 01/01/25 09:19 closure Sulfa (Sulfonamide AdvReac Severe Rash/Hives Verified 01/01/25 09:19 Antibiotics) Exam Intake and Output 12/31/24 01/01/25 01/01/25 22:59 06:59 14:59 Other: Weight 83.461 kg Blood pressure 135/83, height 5 feet 4 inches, weight 184 pounds, BMI 31.6, temperature 98.1, pulse 69, pulse oximeter 99%. This is a well-developed well-nourished white female who is alert and oriented times 3 in no acute distress. HEENT: Within normal limits. NECK: Supple without mass or thyromegaly. CHEST AND LUNGS: Clear to auscultation. HEART: Regular rate and rhythm. BREASTS: Are without mass or discharge. There are bilateral breast implants. AXILLARY EXAM: Negative for adenopathy. BACK: Negative for CVA tenderness. ABDOMEN: Soft, nontender, without palpable masses. PELVIC EXAM: Normal external genitalia. Cervix and vagina appear normal. There is no unusual discharge. There is no evidence of prolapse. The uterus is midposition, nongravid size and nontender. There are no palpable adnexal masses or tenderness. RECTAL EXAM: Rectovaginal exam is negative for mass or tenderness and is negative for occult blood. EXTREMITIES: Nontender. IMPRESSION: 1. 54-year-old menopausal female with normal gynecologic exam. 2. Mild vasomotor symptoms consistent with early menopause PLAN: 1. Pap smear was deferred since she had a negative Pap smear cotest on 05/23. Will plan on repeating the Pap smear next year. 2. Self breast awareness was discussed with the patient. We have also discussed symptoms associated with inflammatory breast cancer. 3. Screening mammogram was done today. 4. Osteoporosis prevention was discussed. I have stressed the importance of adequate calcium, vitamin D and regular exercise. Recommended amounts of calcium and vitamin D were also discussed. 5. Cyclic Provera has been discontinued. She was instructed to call if she develops any vaginal bleeding. 6. She was advised to return in one year for her annual well woman exam.
--- NOTE | 2025-01-01 10:33 | MM ---
Reason for Exam: Hx of breast augmentation, asymptomatic. Last screening mammogram was performed 12 month(s) ago. Patient History: Menarche at age 16. First Full-Term at age 18. Postmenopausal. Patient has history of breast feeding. Currently using Progesterone, starting at age 48. 2018, Bilateral Implants. Mother had breast cancer. Risk Values: Jennifer 5 year model risk: 1.9%. NCI Lifetime model risk: 14.0%. Prior Study Comparison: 06/16/2021 Bilateral Screening Mammogram, [facility]. 11/09/2022 Bilateral MG 3D screen mammo imp/cad., [facility]. 12/27/2023 Bilateral MG 3D screening mammo w/cad, [facility]. Tissue Density: The breasts are heterogeneously dense, which may obscure small masses. Findings: Analyzed By CAD. Bilateral breast implants are redemonstrated. There is no suspicious group of microcalcifications or new suspicious mass in either breast. Overall Assessment: Benign, BI-RAD 2 Management: Screening Mammogram of both breasts in 1 year. . Patient should continue monthly self-breast exams. A clinical breast exam by your physician is recommended on an annual basis. This exam should not preclude additional follow-up of suspicious palpable abnormalities. Note on Jennifer scores and lifetime risk: 1. A Jennifer score greater than 3% is considered moderate risk. If this is the case, consider specialist referral to assess eligibility for a risk reducing agent. 2. If overall lifetime risk for the development of breast cancer is 20% or higher, the patient may qualify for future screening with alternating mammogram and breast MRI. [facility], , 01/01/2025 10:29 AM. Electronically signed and approved by: Jef Wheat M.D.
== END | disposition home or self-care (01) ==
LOC: RADMAMWWP 08:48
PROVIDERS: ATTEND Obstetrics & Gynecology
DX: Z12.31 Encounter for screening mammogram for malignant neoplasm of breast (principal); R92.333 Mammographic heterogeneous density, bilateral breasts; Z80.3 Family history of malignant neoplasm of breast; Z78.0 Asymptomatic menopausal state; Z98.82 Breast implant status
CPT/HCPCS: 77063; 77067